=== PATIENT | male | born 1995 | race Caucasian/White ===

== ENCOUNTER 2017-09-29 07:06 | Emergency (ER) | payer OTHER | END 2017-09-29 09:09 | disposition other institution (70) | LOC: ED 07:06 | DX: Z02.89 Encounter for other administrative examinations (principal) ==

== ENCOUNTER 2017-09-29 07:06 | Emergency (ER) | payer MEDICAID ==
[~2017-09-29] VITALS: Ht 175.3 cm; Wt 72.1 kg
[2017-09-29 07:11] VITALS: BP 124/70; Ht 175.3 cm; Wt 72.1 kg
== END 2017-09-29 08:08 | disposition other institution (70) ==
LOC: ED 07:06
DX: S81.011A Laceration without foreign body, right knee, initial encounter (principal); V89.2XXA Person injured in unspecified motor-vehicle accident, traffic, initial encounter; W22.10XA Striking against or struck by unspecified automobile airbag, initial encounter; Y93.89 Activity, other specified; Y92.89 Other specified places as the place of occurrence of the external cause; Y99.8 Other external cause status
CPT/HCPCS: J2001